=== PATIENT | female | born 1980 | race Asian ===

== ENCOUNTER 2016-11-08 16:49 | Emergency (ER) | payer OTHER ==
[2016-11-08] MEDS ORDERED: MOTRIN PO ONE (19:26)
[2016-11-08] MEDS ORDERED: NORCO 5/325 PO ONE (19:26)
--- NOTE | 2016-11-08 20:06 | XRay Report ---
FINAL REPORT PROCEDURE: XR WRIST 3 RT TECHNIQUE: Three views of the right wrist are HISTORY: wrist pain/SWELLING PATIENT SAYS THAT SHE TYPES FOR WORK AND TODAY THE WRIST IS PAINFUL ON THE MEDIAL SIDE/SWOLLEN COMPARISON: No prior studies are available for comparison. FINDINGS: There is no fracture or dislocation. No arthritic changes are seen. There is likely mild soft tissue swelling. IMPRESSION: There is likely mild soft tissue swelling.
[2016-11-08 20:26] VITALS: BP 122/60
--- NOTE | 2016-11-08 22:48 | Emergency Department Report ---
Entered by ERVIN ARGUELLO, acting as scribe for SHARMIN MAHMOOD PA. Upper Extremity - HPI Chief Complaint: Extremity Injury, Upper Stated Complaint: RT WRIST SWELLING/PAIN Time Seen by Provider: 11/08/16 19:16 Upper Extremity: Right Wrist (aching constant pain, intermittently sharp) Occurred When: Today (0900) Mechanism: Unsure (types a lot at work, upon which she notices her pain) Severity: moderate (8/10) Symptoms: Yes Pain with Movement, Yes Numbness (to wrist and radiating up arm only, negative in fingers), Yes Swelling, No Deformity, No Limited Range of Movement, No Weakness, No Bruising/Ecchymosis, No Laceration or Abrasion Other History: 36 y/o female presents to ED c/o right wrist pain since earlier today at 0900, 8/10 in severity and described as sharp intermittently and aching constantly. She reports mild relief with Ibuprofen temporarily, but reports swelling soon after. She reports this has happened before multiple times , since one month ago, usually while working, noting she types a lot at work. She denies acute injury or trauma. She reports tingling and mild pain radiating up to her right arm, but denies tingling in her fingers. She denies any additional complaints, including fever, nausea, vomiting, shortness of breath, or abdominal pain. ED Review of Systems ROS: Stated complaint: RT WRIST SWELLING/PAIN Other details as noted in HPI Constitutional: Denies chills, fever, diaphoresis, malaise, weakness Eyes: Denies eye pain ENT: Denies ear pain, throat pain, congestion Respiratory: Denies cough, shortness of breath, wheezing Cardiovascular: Denies chest pain, palpitations Endocrine: No symptoms reported GI: Denies abdominal pain, nausea, vomiting, diarrhea Musculoskeletal: Positive for wrist pain, swelling Skin: Denies rash, lesions, pruritus Neurological: Denies headache, weakness, paresthesias. Positive for tingling to right wrist, negative for tingling of right fingers ED Past Medical Hx - Past Medical History Previous Medical History?: No - Surgical History Past Surgical History?: No - Social History Smoking Status: Never Smoker Substance Use Type: Alcohol - Medications Home Medications: Home Medications Medication Instructions Recorded Confirmed Last Taken Type Naproxen [Naprosyn] 500 mg PO BID #30 tablet 11/08/16 Unknown Rx Upper Extremity Exam - Exam General: Vital signs noted. No distress. Alert and acting appropriately. GENERAL: The patient is well-developed and well-nourished. Patient is in NAD. HEAD: Normocephalic. Atraumatic. EYES: Extraocular motions are intact, PERRL. EARS: External auditory canals and tympanic membranes clear; hearing grossly intact. NOSE: Normal nasal mucosa with no nasal discharge. THROAT: No erythema, swelling or exudates. NECK: Supple, nontender, without lymphadenopathy. No meningitic signs are noted. CHEST/LUNGS: Clear to auscultation throughout. HEART/CARDIOVASCULAR: Regular rate and rhythm. No murmurs, rubs or gallops. ABDOMEN: Abdomen is soft, nontender. Bowel sounds normoactive. No guarding or rebound tenderness. EXTREMITIES: No cyanosis, clubbing or edema. Painful, but full range of motion of right wrist. Tenderness to palpation over right wrist joint. 2 point discrimination intact. No anatomic snuff box tenderness. Peripheral pulses intact. Capillary refill less than 2 seconds. ED Course Vital Signs 11/08/16 17:05 Temperature 98.3 F Pulse Rate 67 Respiratory 16 Rate Blood Pressure 125/89 O2 Sat by Pulse 100 Oximetry ED Medical Decision Making - Lab Data Vital Signs 11/08/16 11/08/16 11/08/16 17:05 19:37 19:42 Temperature 98.3 F Pulse Rate 67 Respiratory 16 20 20 Rate Blood Pressure 125/89 Blood Pressure [Left] O2 Sat by Pulse 100 Oximetry 11/08/16 11/08/16 20:25 20:26 Temperature 98.7 F Pulse Rate 65 Respiratory 20 20 Rate Blood Pressure Blood Pressure 122/60 [Left] O2 Sat by Pulse 99 Oximetry - Radiology Data Radiology results: report reviewed PROCEDURE: XR WRIST 3 RT TECHNIQUE: Three views of the right wrist are HISTORY: wrist pain/SWELLING PATIENT SAYS THAT SHE TYPES FOR WORK AND TODAY THE WRIST IS PAINFUL ON THE MEDIAL SIDE/SWOLLEN COMPARISON: No prior studies are available for comparison. FINDINGS: There is no fracture or dislocation. No arthritic changes are seen. There is likely mild soft tissue swelling. IMPRESSION: There is likely mild soft tissue swelling. - Medical Decision Making 36 year old female patient presents today with right wrist pain, swelling, denying injury or acute trauma, but noting she types frequently at work. Her x- ray results revealed no fracture or dislocation. Mild soft tissue edema was noted. Patient is in no acute distress at this time. She will be discharged home and is encouraged to follow up with a primary care provider. She will be sent home on Naprosyn and is encouraged to return to the emergency room for any worsening symptoms. Critical care attestation.: If time is entered above; I have spent that time in minutes in the direct care of this critically ill patient, excluding procedure time. ED Disposition Clinical Impression: Wrist pain Qualifiers: Laterality: right Qualified Code(s): M25.531 - Pain in right wrist Disposition: DISCHARGED TO HOME OR SELFCARE Is pt being admited?: No Does the pt Need Aspirin: No Condition: Stable Instructions: Carpal Tunnel Syndrome (ED), Wrist Sprain (ED) Additional Instructions: Follow-up with primary care provider. Return to the emergency department if symptoms worsen. Prescriptions: Naproxen [Naprosyn] 500 mg PO BID #30 tablet Referrals: PRIMARY CAREMD [Primary Care Provider] - 3-5 Days ZOE ORTEGA MD [Staff Physician] - 3-5 Days Forms: Accompanied Note, Work/School Release Form(ED) Time of Disposition: 20:08 This documentation as recorded by the SAUNDRA chun AHSAN,accurately reflects the service I personally performed and the decisions made by ,SHARMIN MAHMOOD PA.
== END 2016-11-08 20:46 | disposition home or self-care (01) ==
LOC: ED 16:49
DX: M25.531 Pain in right wrist (principal)